=== PATIENT | male | born 1955 | race Caucasian/White ===

== ENCOUNTER 2023-03-28 06:21 | Day surgery (SDC) | payer MEDICARE, BC ==
[2023-03-26 11:34] VITALS: BMI 19.5
[2023-03-28] MEDS ORDERED: Lidocaine 2% MPF 10 ML AMP (For Epidural Use) ONE (07:11)
[2023-03-28] MEDS ORDERED: PROPOFOL 60 ML ONE (07:11)
== END 2023-03-28 08:50 | disposition home or self-care (01) ==
LOC: CSHSDC 06:21
PROVIDERS: ATTEND Internal Medicine Gastroenterology
PROC: 0DBH8ZX Excision of Cecum, Via Natural or Artificial Opening Endoscopic, Diagnostic (ICD-10-PCS; principal; 2023-03-28)
DX: K52.9 Noninfective gastroenteritis and colitis, unspecified (principal); K64.8 Other hemorrhoids; K57.30 Diverticulosis of large intestine without perforation or abscess without bleeding; K59.00 Constipation, unspecified; E11.9 Type 2 diabetes mellitus without complications; Z86.010 Personal history of colon polyps; Z86.73 Personal history of transient ischemic attack (TIA), and cerebral infarction without residual deficits; Z88.8 Allergy status to other drugs, medicaments and biological substances
CPT/HCPCS: 88305; J2704